=== PATIENT | female | born 1995 | race Caucasian/White ===

== ENCOUNTER 2020-12-28 04:31 | Outpatient (CLI) | payer BC ==
[~2020-12-28] VITALS: Ht 152.4 cm; Wt 88.0 kg
[2020-12-28 04:57] VITALS: BP 124/75
[2020-12-28] MEDS ORDERED: PREN-142 PO (05:04)
[2020-12-28 05:18] LABS: BILIRUBIN,URINE NEGATIVE (NEGATIVE); CLARITY,URINE CLEAR; COLOR,URINE YELLOW; GLUCOSE, URINE (UA) NEGATIVE (NEGATIVE); KETONES,URINE TRACE (NEGATIVE); LEUKOCYTE ESTERASE ,URINE 2+ (NEGATIVE); NITRITE,URINE NEGATIVE (NEGATIVE); PH,URINE 6.5 (5-9); PROTEIN,URINE TRACE (NEGATIVE)
[2020-12-28 05:35] LABS: BACTERIA,URINE LARGE /HPF; RBC,URINE 0-2 /HPF; SQUAMOUS EPITHELIAL CELL,UR 25-50 /HPF; WBC,URINE 50-100 /HPF
[2020-12-28] MEDS ORDERED: ONDANSETRON 4 MG/2 ML (SDV) Z0FRAN ONE (05:36)
[2020-12-28] MEDS ORDERED: D5 LR IV SOLUTION 1,000 ML IV ONE (05:37)
[2020-12-28] MEDS ORDERED: ONDANSETRON 4 MG/2 ML (SDV) Z0FRAN IVP ONE (05:45)
[2020-12-28] MEDS ORDERED: LOPERAMIDE 2 MG (IMODIUM) TABLET PO ONE (05:45)
[2020-12-28] MEDS ORDERED: D5 LR IV SOLUTION 1,000 ML IV SCH (05:45)
[2020-12-28] MEDS ORDERED: LOPERAMIDE 2 MG (IMODIUM) TABLET PO PRN (05:45)
[2020-12-28 06:33] LABS: BILIRUBIN,URINE NEGATIVE (NEGATIVE); CLARITY,URINE CLEAR; COLOR,URINE YELLOW; GLUCOSE, URINE (UA) NEGATIVE (NEGATIVE); KETONES,URINE TRACE (NEGATIVE); LEUKOCYTE ESTERASE ,URINE TRACE (NEGATIVE); NITRITE,URINE NEGATIVE (NEGATIVE); PH,URINE 6.5 (5-9); PROTEIN,URINE TRACE (NEGATIVE)
[2020-12-28 06:43] LABS: BASOPHILS % (AUTO) 0 % (0-10); EOSINOPHILS # (AUTO) 0.1 10^3/uL (0.0-0.3); EOSINOPHILS % (AUTO) 1 % (0-10); HEMATOCRIT 37 % (35-52); HEMOGLOBIN 12.4 g/dL (11.5-16.0); LYMPHOCYTES # (AUTO) 2.7 10^3/uL (1.0-4.0); LYMPHOCYTES % (AUTO) 22 % (12-44); MEAN CORPUSCULAR HEMOGLOBIN 28 pg (25-34); MEAN CORPUSCULAR HGB CONC 33 g/dL (32-36); MEAN CORPUSCULAR VOLUME 84 fL (80-99); MEAN PLATELET VOLUME 10.4 fL (9.0-12.2); MONOCYTES # (AUTO) 0.8 10^3/uL (0.0-1.0); MONOCYTES % (AUTO) 6 % (0-12); NEUTROPHILS # (AUTO) 8.9 10^3/uL (1.8-7.8); NEUTROPHILS % (AUTO) 71 % (42-75); PLATELET COUNT 236 10^3/uL (130-400); WHITE BLOOD COUNT 12.6 10^3/uL (4.3-11.0)
[2020-12-28 06:53] LABS: BACTERIA,URINE NEGATIVE /HPF; SQUAMOUS EPITHELIAL CELL,UR 0-2 /HPF
[2020-12-28 07:22] LABS: ALBUMIN 3.1 GM/DL (3.2-4.5); CHLORIDE 106 MMOL/L (98-107); POTASSIUM 3.7 MMOL/L (3.6-5.0); SODIUM 135 MMOL/L (135-145)
[2020-12-28 07:23] LABS: CALCIUM 8.7 MG/DL (8.5-10.1)
[2020-12-28 07:24] LABS: GLUCOSE 91 MG/DL (70-105)
[2020-12-28 07:25] LABS: TOTAL PROTEIN 6.3 GM/DL (6.4-8.2)
[2020-12-28 07:26] LABS: BILIRUBIN,TOTAL 0.5 MG/DL (0.1-1.0); CARBON DIOXIDE 17 MMOL/L (21-32)
[2020-12-28 07:28] LABS: ALKALINE PHOSPHATASE 150 U/L (40-136); CREATININE SERUM 0.71 MG/DL (0.60-1.30); GFR ESTIMATED > 60
[2020-12-28 07:29] LABS: BUN/CREATININE RATIO 14
[2020-12-28 07:31] LABS: ALANINE AMINOTRANSFERASE 52 U/L (0-55)
--- NOTE | 2020-12-31 07:29 | Physician Query-Final Dx ---
ALLEN QUINTERO 12/31/20 0728: Clinic Account Progress/Dx Physician Query: Please give diagnosis Please include # weeks gestation Date of Service Dec 28, 2020 at 04:31 ELVIN HARRIS MD 01/01/21 0838: Clinic Account Progress/Dx DIAGNOSIS: Diagnosis 36 weeks with false labor ALLEN QUINTERO Dec 31, 2020 07:28 ELVIN HARRIS MD Jan 01, 2021 08:38
== END 2020-12-28 08:22 | disposition home or self-care (01) ==
LOC: WSo 04:31 → LDRP 04:32 → WS 08:04 → LDRP 08:04 → WSo 08:22
PROVIDERS: ATTEND Obstetrics & Gynecology
DX: O26.893 Other specified pregnancy related conditions, third trimester (principal); R11.2 Nausea with vomiting, unspecified; Z3A.36 36 weeks gestation of pregnancy
CPT/HCPCS: 80053; 81000; 82570; 84156; 85025; 87088; 96361; 96374; G0463; 36415; 99214

== ENCOUNTER 2021-01-06 09:07 | Outpatient (CLI) | payer BC ==
[~2021-01-06] VITALS: Ht 160 cm; Wt 91.5 kg
[~2021-01-06 09:07] MED LIST: PREN-142 PO
[2021-01-06 10:58] VITALS: BP 126/67
--- NOTE | 2021-01-07 07:48 | Physician Query-Final Dx ---
ALLEN QUINTERO 01/07/21 0748: Clinic Account Progress/Dx Physician Query: Please give diagnosis Please include # weeks gestation Date of Service Jan 06, 2021 at 09:07 ELVIN HARRIS MD 01/07/21 2004: Clinic Account Progress/Dx DIAGNOSIS: Diagnosis 37 weeks with false labor ALLEN QUINTERO Jan 07, 2021 07:48 ELVIN HARRIS MD Jan 07, 2021 20:04
== END 2021-01-06 10:50 | disposition home or self-care (01) ==
LOC: WSo 09:07 → LDRP 09:08 → WSo 10:50
PROVIDERS: ATTEND Obstetrics & Gynecology
DX: O12.03 Gestational edema, third trimester (principal); Z3A.37 37 weeks gestation of pregnancy
CPT/HCPCS: 99213

== ENCOUNTER 2021-01-09 07:14 | Inpatient (IN) | payer BC ==
[~2021-01-09] VITALS: Ht 152.4 cm; Wt 91.3 kg
[2021-01-09] VITALS (44 sets, daily range): BP systolic 94–135; BP diastolic 50–85
[2021-01-09] MEDS ORDERED: AMPICILLIN FOR IV USE 2,000 MG in WATER (STERILE) FOR INJECTION 14.8 ML IV ONE (07:45)
[2021-01-09] MEDS ORDERED: AMPICILLIN FOR IV USE 1,000 MG in WATER (STERILE) FOR INJECTION 7.4 ML IV SCH (07:45)
[2021-01-09] MEDS ORDERED: OXYTOCIN PRE-MIX DRIP 500 ML IV SCH (07:45)
[2021-01-09] MEDS ORDERED: AMPICILLIN 2,000 MG/14.8 ML (IV USE) ONE (08:01)
[2021-01-09] MEDS ORDERED: D5 LR IV SOLUTION 1,000 ML IV ONE (08:01)
[2021-01-09] MEDS ORDERED: OXYTOCIN PRE-MIX DRIP 500 ML IV ONE (08:01)
[2021-01-09] MEDS ORDERED: WATER (STERILE) FOR INJECTION 20 ML ONE (08:01)
--- NOTE | 2021-01-09 08:07 | History & Physical ---
History and Physical Date Seen by Provider: Jan 09, 2021 Time Seen by Provider: 07:45 This patient is a 25-year-old 1 female who presents for induction of labor. She was seen in clinic yesterday and found to have an JENISE of barely over 5 the low end of estimated growth and consistent with SGA's versus overtly growth restricted. Otherwise uncomplicated. GBS culture however was positive after 35 weeks gestation. Clinic that she was not sure whether she might be leaking fluid. With the low JENISE to admit for labor induction Patient presents with no complaints of contractions rupture membranes or bleeding. Allergies are to iodine Medications are vitamins Medical social and surgical history is all per the antepartum record HEENT exam is normal Neck is supple no lymphadenopathy no thyromegaly Abdomen is gravid soft nontender nondistended Extremities show no clubbing or cyanosis. There is no Homans' sign. Pelvic exam in clinic showed a cervix not quite a centimeter dilated 60% effaced -2 station with vertex presentation Assessment and plan 37 5/7 weeks gestation with notable oligohydramnios. Patient is admitted now for labor induction. We anticipate a vaginal delivery 37-5/7 weeks gestation with oligohydramnios Allergies and Home Medications Allergies Coded Allergies: iodine (Verified Allergy, Unknown, 12/28/20) shellfish derived (Verified Allergy, Unknown, 12/28/20) Home Medications Vit No.124/Iron/FA 1 Each Tablet, 1 EACH PO DAILY, (Reported) Patient Home Medication List Home Medication List Reviewed: Yes ELVIN HARRIS MD Jan 09, 2021 08:07
[2021-01-09 08:09] LABS: BASOPHILS # (AUTO) 0.1 10^3/uL (0.0-0.1); BASOPHILS % (AUTO) 0 % (0-10); EOSINOPHILS # (AUTO) 0.1 10^3/uL (0.0-0.3); EOSINOPHILS % (AUTO) 1 % (0-10); HEMATOCRIT 37 % (35-52); HEMOGLOBIN 12.8 g/dL (11.5-16.0); LYMPHOCYTES # (AUTO) 3.1 10^3/uL (1.0-4.0); LYMPHOCYTES % (AUTO) 27 % (12-44); MEAN CORPUSCULAR HEMOGLOBIN 28 pg (25-34); MEAN CORPUSCULAR HGB CONC 34 g/dL (32-36); MEAN CORPUSCULAR VOLUME 82 fL (80-99); MEAN PLATELET VOLUME 10.6 fL (9.0-12.2); MONOCYTES % (AUTO) 8 % (0-12); NEUTROPHILS # (AUTO) 7.1 10^3/uL (1.8-7.8); NEUTROPHILS % (AUTO) 62 % (42-75); PLATELET COUNT 241 10^3/uL (130-400); WHITE BLOOD COUNT 11.4 10^3/uL (4.3-11.0)
[2021-01-09] MEDS: D5 LR IV SOLUTION 1,000 ML IV SCH ×3 (08:18→22:26)
[2021-01-09] MEDS ORDERED: ACETAMINOPHEN 500 MG TAB (TYLENOL) ONE (10:23)
[2021-01-09] MEDS ORDERED: ACETAMINOPHEN 500 MG TAB (TYLENOL) PO ONE (10:30)
[2021-01-09] MEDS: AMPICILLIN FOR IV USE 1,000 MG in WATER (STERILE) FOR INJECTION 7.4 ML IV SCH ×2 (12:02→16:08)
[2021-01-10] VITALS (49 sets, daily range): BP systolic 82–136; BP diastolic 57–84
[2021-01-10] MEDS ORDERED: AMPICILLIN 2,000 MG/14.8 ML (IV USE) ONE (04:56)
[2021-01-10] MEDS ORDERED: WATER (STERILE) FOR INJECTION 10 ML ONE (04:57)
[2021-01-10] MEDS: D5 LR IV SOLUTION 1,000 ML IV SCH ×2 (05:07→12:30)
[2021-01-10] MEDS ORDERED: AMPICILLIN FOR IV USE 2,000 MG in WATER (STERILE) FOR INJECTION 14.8 ML IV SCH (07:00)
[2021-01-10] MEDS: AMPICILLIN FOR IV USE 1,000 MG in WATER (STERILE) FOR INJECTION 7.4 ML IV SCH ×2 (09:05→13:12)
--- NOTE | 2021-01-10 09:07 | Progress Note ---
Standard Progress Note Progress Notes/Assess & Plan Date Seen by a Provider: Jan 10, 2021 Time Seen by a Provider: 09:05 Progress/Assessment & Plan This patient is without complaint. She does feel occasional contractions. She feels baby moving. She denies rupture membranes or bleeding. Vital Signs Date Time Temp Pulse Resp B/P (MAP) Pulse Ox O2 Delivery O2 Flow Rate FiO2 01/10/21 07:15 36.4 84 18 110/70 (83) 01/10/21 07:00 36.7 75 18 126/77 (93) 01/10/21 06:45 71 18 132/78 (96) 01/10/21 06:30 68 18 118/67 (84) 01/10/21 06:15 74 18 133/78 (96) 01/10/21 06:00 75 18 135/84 (101) 01/10/21 05:45 74 18 119/64 (82) 01/10/21 05:30 64 18 118/80 (93) 01/10/21 05:17 36.8 65 18 110/64 (79) 01/10/21 04:37 81 18 112/69 (83) 01/10/21 02:00 71 18 118/68 (85) 01/10/21 00:03 78 18 110/69 (83) 01/09/21 22:00 70 18 111/66 (81) 01/09/21 20:00 36.0 75 18 118/66 (83) 01/09/21 19:10 36.0 81 18 110/62 (78) 01/09/21 19:00 91 18 114/71 (85) 01/09/21 18:30 91 18 114/71 (85) 01/09/21 18:15 66 18 109/62 (78) 01/09/21 18:00 69 18 117/63 (81) 01/09/21 17:45 66 18 117/69 (85) 01/09/21 17:30 63 18 123/75 (91) 01/09/21 17:15 63 18 126/76 (93) 01/09/21 17:00 60 18 114/75 (88) 01/09/21 16:15 73 18 97/53 (68) 01/09/21 16:00 76 18 109/64 (79) 01/09/21 15:45 64 18 95/52 (66) 01/09/21 15:30 72 18 94/50 (65) 01/09/21 15:15 70 18 113/63 (80) 01/09/21 15:00 67 18 107/73 (84) 01/09/21 14:45 74 18 111/57 (75) 01/09/21 14:30 71 18 106/59 (75) 01/09/21 14:15 82 18 110/56 (74) 01/09/21 14:00 69 18 109/67 (81) 01/09/21 13:45 69 18 107/58 (74) 01/09/21 13:30 71 18 128/72 (90) 01/09/21 13:15 37.0 74 18 119/74 (89) 01/09/21 13:00 68 18 119/73 (88) 01/09/21 12:45 76 18 122/82 (95) 01/09/21 12:30 79 18 112/69 (83) 01/09/21 12:15 75 18 112/76 (88) 01/09/21 12:00 82 18 109/57 (74) 01/09/21 11:45 83 18 109/58 (75) 01/09/21 11:30 108 18 118/59 (78) 01/09/21 11:15 80 18 107/59 (75) 01/09/21 11:00 78 18 113/64 (80) 01/09/21 10:45 92 18 117/67 (84) 01/09/21 10:30 81 18 105/59 (74) 01/09/21 10:15 77 18 112/71 (85) 01/09/21 10:00 78 18 112/74 (87) 01/09/21 09:45 36.7 79 18 118/62 (80) 01/09/21 09:30 83 18 113/74 (87) 01/09/21 09:15 86 18 121/82 (95) I & O 01/10/21 07:00 Intake Total 1022.2 ml Balance 1022.2 ml Vital signs are stable. Patient is afebrile. Cervical exam shows a cervix thinned out about a third of the way but closed. Presenting part is at a relatively high station -3 -4 Assessment and plan This is day 2 of a serial induction for oligohydramnios at 37+ weeks gestation. Patient made essentially no progress at all with over 8 hours of Pitocin stimulation yesterday. Plan is to proceed with Pitocin induction today if she fails to progress then eventually would be warranted. Patient understands the plan and agrees with that plan ELVIN HARRIS MD Jan 10, 2021 09:07
[2021-01-10] MEDS ORDERED: IBUP-1780 PO (09:14)
[2021-01-10] MEDS ORDERED: OXYC1TAB12 PO (09:14)
[2021-01-10] MEDS ORDERED: DOCU-143 PO (09:14)
--- NOTE | 2021-01-10 09:15 | Discharge Inst-Surgical ---
Discharge Inst-Surgical Depart Medication/Instructions New, Converted or Re-Newed RX: RX on Chart Consults/Follow Up Patient Instructions: As directed Orders & Referrals Follow Up Appt: RTC On Thursday, January 18, 2021 at 9:30 AM for staple removal and for incision check. Call to make follow up appt. for patient in 4 weeks. Wound Care: Remove keri, apply benzoin and steri strips. Activity Per routine post instructions. Please call in RX to patient pharmacy. Diet as tolerated Patient may shower or tub bathe as desired. Continue home meds Activity Activity as Tolerated: No Diet Discharge Diet: No Restrictions ELVIN HARRIS MD Jan 10, 2021 09:15
[2021-01-10] MEDS ORDERED: metroNIDAZOLE 500MG/100ML IVPB 100 ML IV ONE (14:30)
[2021-01-10] MEDS ORDERED: CITRIC ACID/SOB CIT (BICITRA) 30 ML UDC ONE (14:33)
[2021-01-10] MEDS ORDERED: METOCLOPRAMIDE INJ 10 MG/2 ML (REGLAN) ONE (14:33)
[2021-01-10] MEDS ORDERED: FAMOTIDINE 20MG/2ML IV (PEPCID) ONE (14:33)
[2021-01-10] MEDS ORDERED: ONDANSETRON 4 MG/2 ML (SDV) Z0FRAN ONE (14:40)
[2021-01-10] MEDS ORDERED: fentaNYL INJ 100 MCG/2 ML AMP ONE (14:41)
[2021-01-10] MEDS ORDERED: OXYTOCIN PRE-MIX DRIP 500 ML IV ONE (14:41)
[2021-01-10] MEDS ORDERED: BUPIVACAINE 0.25% 30 ML (SENSORCAINE) VIAL ONE (14:41)
[2021-01-10] MEDS ORDERED: KETOROLAC 30 MG/ML VIAL ONE (14:42)
[2021-01-10] MEDS ORDERED: METOCLOPRAMIDE INJ 10 MG/2 ML (REGLAN) IV ONE (14:45)
[2021-01-10] MEDS ORDERED: CITRIC ACID/SOB CIT (BICITRA) 30 ML UDC PO ONE (14:45)
[2021-01-10] MEDS ORDERED: FAMOTIDINE 20MG/2ML IV (PEPCID) IV ONE (14:45)
[2021-01-10] MEDS ORDERED: LACTATED RINGERS 1,000 ML IV PRN (14:45)
[2021-01-10] MEDS ORDERED: ONDANSETRON 4 MG/2 ML (SDV) Z0FRAN IV PRN (16:15)
[2021-01-10] MEDS ORDERED: ONDANSETRON 4 MG/2 ML (SDV) Z0FRAN IVP PRN ×2 (16:15→16:45)
[2021-01-10] MEDS ORDERED: NALOXONE 0.4 MG/ML 1 ML (NARCAN) VIAL IV PRN ×2 (16:15)
[2021-01-10] MEDS ORDERED: fentaNYL INJ 100 MCG/2 ML AMP IVP ONE (16:15)
[2021-01-10] MEDS ORDERED: diphenhydrAMINE 50 MG/ML INJ (BENADRYL) IV PRN (16:15)
[2021-01-10] MEDS ORDERED: METOCLOPRAMIDE INJ 10 MG/2 ML (REGLAN) IV PRN (16:15)
[2021-01-10] MEDS ORDERED: TETANUS,DIPTH,PERTUSS P/F (BOOSTRIX) 0.5 ML VIAL IM ONE (16:30)
[2021-01-10] MEDS ORDERED: D5 LR IV SOLUTION 1,000 ML IV SCH (16:30)
[2021-01-10] MEDS ORDERED: OXYTOCIN PRE-MIX DRIP 500 ML IV SCH (16:30)
[2021-01-10] MEDS ORDERED: MEASLES,MUMPS,RUBELLA 1 EA INJ SC ONE (16:30)
[2021-01-10] MEDS ORDERED: fentaNYL INJ 100 MCG/2 ML AMP IVP PRN (16:45)
[2021-01-10] MEDS ORDERED: IBUPROFEN 800 MG (MOTRIN) TAB PO SCH (17:00)
--- NOTE | 2021-01-10 17:57 | OPERATIVE REPORT ---
DATE OF SERVICE: 01/10/2021 PREOPERATIVE DIAGNOSIS: Term with oligohydramnios, status post serial induction for two days with a very little progress made. POSTOPERATIVE DIAGNOSIS: Term with oligohydramnios, status post serial induction for two days with a very little progress made. OPERATIVE PROCEDURE: Primary low transverse delivery of a viable female infant with Apgars of 8 and 9 at 1 and 5 minutes respectively, weight of 6 pounds 5 ounces, time of 1533 and a cord blood pH of 7.34. OPERATIVE DESCRIPTION: With the patient in supine position under satisfactory spinal analgesia, she was prepped and draped in the usual fashion for abdominal surgery. Powers catheter was placed in the urinary bladder. A Pfannenstiel incision was made through skin with scalpel, the patient's abdomen was entered in the usual manner. Bladder retractor was placed in position. Clean scalpel was used to make a 4 cm hysterotomy incision transversely across the lower uterine segment that was extended by blunt dissection as well. Small amount of amniotic fluid was released on hysterotomy. A vigorous viable female infant was delivered via the uterine incision in the usual manner. The infant was bulb suctioned on delivery of the head and again on completion of delivery. Umbilical cord was doubly clamped and cut and the passed to the pediatric nurse in attendance for delivery. Cord bloods were obtained. The placenta delivered spontaneously Chicas. It was normal with a 3-vessel cord. The uterus was exteriorized and interior wiped clean with a wet laparotomy sponge. Uterine incision then closed with a running locked suture of 2-0 Vicryl. Hemostasis was satisfactory; however, the uterus was quite atonic. Modified B-Gomez suture was placed using 2-0 chromic sutures in the usual modified manner. This compressed the uterus nicely prophylaxis and further potential significant blood loss. The uterus was now returned to the abdominal cavity. All blood clot and debris removed with the abdominal cavity. Sponge and needle counts correct, hemostasis assured. The anterior parietal peritoneum was closed with running suture of 2-0 Vicryl. Rectus muscles were closed with that suture as well. The rectus fascia was closed with 2-0 Vicryl, subcutaneous tissue was closed with 2-0 Vicryl and the skin was stapled. Sponge and needle counts were correct at the end of procedure. Estimated blood loss was around 200 to 300 mL. The patient tolerated the procedure well and was transferred to the recovery room in stable condition. The infant had remained with the mom. Job ID: [id number] DocumentID: [id number] Dictated Date: 01/10/2021 15:58:05 Sales Marketing Date: 01/10/2021 17:56:44 Dictated By: ELVIN HARRIS MD
[2021-01-10] MEDS: oxyCODONE/APAP 10/325MG (PERCOCET 10) TABLET PO PRN (20:03)
[2021-01-10] MEDS: DOCUSATE SODIUM 100 MG (COLACE) CAP PO SCH (20:29)
[2021-01-10] MEDS ORDERED: DOCUSATE SODIUM 100 MG (COLACE) CAP PO SCH (21:00)
[2021-01-10] MEDS: IBUPROFEN 800 MG (MOTRIN) TAB PO SCH (21:34)
[2021-01-11 03:10] VITALS: BP 110/65
[2021-01-11] MEDS: IBUPROFEN 800 MG (MOTRIN) TAB PO SCH ×4 (03:28→22:01)
--- NOTE | 2021-01-11 07:20 | Anesthesia-Regional Post-Op ---
Regional Patient Condition Mental Status: Alert, Oriented x3 Circulation: Same as Pre-Op Headache: Absent Sensation: Full Recovery Motor Block: Absent Post Op Complications Complications None Follow Up Care/Instructions Patient Instructions None needed. Anesthesia/Patient Condition Patient is doing well, no complaints, stable vital signs, no apparent adverse anesthesia problems. No complications reported per nursing. SAUL JONES CRNA Jan 11, 2021 07:20
--- NOTE | 2021-01-11 08:15 | Progress Note ---
Standard Progress Note Progress Notes/Assess & Plan Date Seen by a Provider: Jan 11, 2021 Time Seen by a Provider: 08:14 Progress/Assessment & Plan This patient is without complaint. She does feel occasional contractions. She feels baby moving. She denies rupture membranes or bleeding. Vital Signs Date Time Temp Pulse Resp B/P (MAP) Pulse Ox O2 Delivery O2 Flow Rate FiO2 01/10/21 07:15 36.4 84 18 110/70 (83) 01/10/21 07:00 36.7 75 18 126/77 (93) 01/10/21 06:45 71 18 132/78 (96) 01/10/21 06:30 68 18 118/67 (84) 01/10/21 06:15 74 18 133/78 (96) 01/10/21 06:00 75 18 135/84 (101) 01/10/21 05:45 74 18 119/64 (82) 01/10/21 05:30 64 18 118/80 (93) 01/10/21 05:17 36.8 65 18 110/64 (79) 01/10/21 04:37 81 18 112/69 (83) 01/10/21 02:00 71 18 118/68 (85) 01/10/21 00:03 78 18 110/69 (83) 01/09/21 22:00 70 18 111/66 (81) 01/09/21 20:00 36.0 75 18 118/66 (83) 01/09/21 19:10 36.0 81 18 110/62 (78) 01/09/21 19:00 91 18 114/71 (85) 01/09/21 18:30 91 18 114/71 (85) 01/09/21 18:15 66 18 109/62 (78) 01/09/21 18:00 69 18 117/63 (81) 01/09/21 17:45 66 18 117/69 (85) 01/09/21 17:30 63 18 123/75 (91) 01/09/21 17:15 63 18 126/76 (93) 01/09/21 17:00 60 18 114/75 (88) 01/09/21 16:15 73 18 97/53 (68) 01/09/21 16:00 76 18 109/64 (79) 01/09/21 15:45 64 18 95/52 (66) 01/09/21 15:30 72 18 94/50 (65) 01/09/21 15:15 70 18 113/63 (80) 01/09/21 15:00 67 18 107/73 (84) 01/09/21 14:45 74 18 111/57 (75) 01/09/21 14:30 71 18 106/59 (75) 01/09/21 14:15 82 18 110/56 (74) 01/09/21 14:00 69 18 109/67 (81) 01/09/21 13:45 69 18 107/58 (74) 01/09/21 13:30 71 18 128/72 (90) 01/09/21 13:15 37.0 74 18 119/74 (89) 01/09/21 13:00 68 18 119/73 (88) 01/09/21 12:45 76 18 122/82 (95) 01/09/21 12:30 79 18 112/69 (83) 01/09/21 12:15 75 18 112/76 (88) 01/09/21 12:00 82 18 109/57 (74) 01/09/21 11:45 83 18 109/58 (75) 01/09/21 11:30 108 18 118/59 (78) 01/09/21 11:15 80 18 107/59 (75) 01/09/21 11:00 78 18 113/64 (80) 01/09/21 10:45 92 18 117/67 (84) 01/09/21 10:30 81 18 105/59 (74) 01/09/21 10:15 77 18 112/71 (85) 01/09/21 10:00 78 18 112/74 (87) 01/09/21 09:45 36.7 79 18 118/62 (80) 01/09/21 09:30 83 18 113/74 (87) 01/09/21 09:15 86 18 121/82 (95) I & O 01/10/21 07:00 Intake Total 1022.2 ml Balance 1022.2 ml Vital signs are stable. Patient is afebrile. Cervical exam shows a cervix thinned out about a third of the way but closed. Presenting part is at a relatively high station -3 -4 Assessment and plan This is day 2 of a serial induction for oligohydramnios at 37+ weeks gestation. Patient made essentially no progress at all with over 8 hours of Pitocin stimulation yesterday. Plan is to proceed with Pitocin induction today if she fails to progress then eventually would be warranted. Patient understands the plan and agrees with that plan This patient is without complaint. She is ambulating, voiding, tolerating oral intake well and has good pain control. Vital Signs 01/11/21 03:10 Temp 36.5 Pulse 77 Resp 16 B/P (MAP) 110/65 (80) Pulse Ox 94 O2 Delivery Room Air Vital signs are stable. Patient is afebrile. The abdomen is benign. The surgical incision is clean dry and intact. Extremities show no clubbing or cyanosis. There is no Homans' sign. Assessment and plan close primary delivery doing well. Plan is for routine convalescent care ELVIN HARRIS MD Jan 11, 2021 08:15
[2021-01-11 08:30] VITALS: BP 118/68
[2021-01-11] MEDS: DOCUSATE SODIUM 100 MG (COLACE) CAP PO SCH ×2 (08:31→19:43)
[2021-01-11] MEDS: oxyCODONE/APAP 10/325MG (PERCOCET 10) TABLET PO PRN (08:31)
[2021-01-11] MEDS ORDERED: SIMETHICONE 80 MG (MYLICON) CHEW ONE (10:21)
[2021-01-11] MEDS ORDERED: ONDANSETRON 4 MG (ZOFRAN) ORAL DISSOLVE TAB ONE (10:23)
[2021-01-11] MEDS ORDERED: ONDANSETRON 4 MG (ZOFRAN) ORAL DISSOLVE TAB PO PRN (10:30)
[2021-01-11] MEDS: SIMETHICONE 80 MG (MYLICON) CHEW PO PRN ×2 (10:34→16:26)
[2021-01-11 12:30] VITALS: BP 119/58
[2021-01-11 15:57] VITALS: BP 127/75
[2021-01-11 22:00] VITALS: BP 124/70
[2021-01-12 04:08] VITALS: BP 119/63
[2021-01-12] MEDS: SIMETHICONE 80 MG (MYLICON) CHEW PO PRN (04:10)
[2021-01-12] MEDS: IBUPROFEN 800 MG (MOTRIN) TAB PO SCH ×2 (04:11→10:49)
[2021-01-12 08:00] VITALS: BP 118/73
[2021-01-12] MEDS: DOCUSATE SODIUM 100 MG (COLACE) CAP PO SCH (08:13)
--- NOTE | 2021-01-12 08:21 | Progress Note ---
Standard Progress Note Progress Notes/Assess & Plan Date Seen by a Provider: Jan 12, 2021 Time Seen by a Provider: 08:21 Progress/Assessment & Plan This patient is without complaint. She does feel occasional contractions. She feels baby moving. She denies rupture membranes or bleeding. Vital Signs Date Time Temp Pulse Resp B/P (MAP) Pulse Ox O2 Delivery O2 Flow Rate FiO2 01/10/21 07:15 36.4 84 18 110/70 (83) 01/10/21 07:00 36.7 75 18 126/77 (93) 01/10/21 06:45 71 18 132/78 (96) 01/10/21 06:30 68 18 118/67 (84) 01/10/21 06:15 74 18 133/78 (96) 01/10/21 06:00 75 18 135/84 (101) 01/10/21 05:45 74 18 119/64 (82) 01/10/21 05:30 64 18 118/80 (93) 01/10/21 05:17 36.8 65 18 110/64 (79) 01/10/21 04:37 81 18 112/69 (83) 01/10/21 02:00 71 18 118/68 (85) 01/10/21 00:03 78 18 110/69 (83) 01/09/21 22:00 70 18 111/66 (81) 01/09/21 20:00 36.0 75 18 118/66 (83) 01/09/21 19:10 36.0 81 18 110/62 (78) 01/09/21 19:00 91 18 114/71 (85) 01/09/21 18:30 91 18 114/71 (85) 01/09/21 18:15 66 18 109/62 (78) 01/09/21 18:00 69 18 117/63 (81) 01/09/21 17:45 66 18 117/69 (85) 01/09/21 17:30 63 18 123/75 (91) 01/09/21 17:15 63 18 126/76 (93) 01/09/21 17:00 60 18 114/75 (88) 01/09/21 16:15 73 18 97/53 (68) 01/09/21 16:00 76 18 109/64 (79) 01/09/21 15:45 64 18 95/52 (66) 01/09/21 15:30 72 18 94/50 (65) 01/09/21 15:15 70 18 113/63 (80) 01/09/21 15:00 67 18 107/73 (84) 01/09/21 14:45 74 18 111/57 (75) 01/09/21 14:30 71 18 106/59 (75) 01/09/21 14:15 82 18 110/56 (74) 01/09/21 14:00 69 18 109/67 (81) 01/09/21 13:45 69 18 107/58 (74) 01/09/21 13:30 71 18 128/72 (90) 01/09/21 13:15 37.0 74 18 119/74 (89) 01/09/21 13:00 68 18 119/73 (88) 01/09/21 12:45 76 18 122/82 (95) 01/09/21 12:30 79 18 112/69 (83) 01/09/21 12:15 75 18 112/76 (88) 01/09/21 12:00 82 18 109/57 (74) 01/09/21 11:45 83 18 109/58 (75) 01/09/21 11:30 108 18 118/59 (78) 01/09/21 11:15 80 18 107/59 (75) 01/09/21 11:00 78 18 113/64 (80) 01/09/21 10:45 92 18 117/67 (84) 01/09/21 10:30 81 18 105/59 (74) 01/09/21 10:15 77 18 112/71 (85) 01/09/21 10:00 78 18 112/74 (87) 01/09/21 09:45 36.7 79 18 118/62 (80) 01/09/21 09:30 83 18 113/74 (87) 01/09/21 09:15 86 18 121/82 (95) I & O 01/10/21 07:00 Intake Total 1022.2 ml Balance 1022.2 ml Vital signs are stable. Patient is afebrile. Cervical exam shows a cervix thinned out about a third of the way but closed. Presenting part is at a relatively high station -3 -4 Assessment and plan This is day 2 of a serial induction for oligohydramnios at 37+ weeks gestation. Patient made essentially no progress at all with over 8 hours of Pitocin stimulation yesterday. Plan is to proceed with Pitocin induction today if she fails to progress then eventually would be warranted. Patient understands the plan and agrees with that plan This patient is without complaint. She is ambulating, voiding, tolerating oral intake well and has good pain control. Vital Signs 01/11/21 03:10 Temp 36.5 Pulse 77 Resp 16 B/P (MAP) 110/65 (80) Pulse Ox 94 O2 Delivery Room Air Vital signs are stable. Patient is afebrile. The abdomen is benign. The surgical incision is clean dry and intact. Extremities show no clubbing or cyanosis. There is no Homans' sign. Assessment and plan close primary delivery doing well. Plan is for routine convalescent care January 12, 2021 See discharge summary Final Diagnosis 37 weeks with oligohydramnios primary delivery ELVIN HARRIS MD Jan 12, 2021 08:21
--- NOTE | 2021-01-12 08:26 | Discharge Summary ---
Discharge Summary 37-week primary delivery This patient is a 25-year-old 1 female who was admitted with oligohydramnios at 37+ weeks gestation on January 09, 2021. She is subjected to Pitocin throughout the day 2 enter labor or make any significant progress. At the end of the day the Pitocin was halted in favor of serial induction. On January 10 Pitocin again was initiated after 8 hours she failed to make any significant progress dilated only to about 1 cm. Of note is that the presenting part was at the -3 to -4 station and never did descend. She never really had significant contractions consistent with some degree of uterine inertia. Decision was made in the evening of January 10 to proceed with delivery for failure to progress. Patient was taken to the operating room where under spinal analgesia was performed. The procedure was uncomplicated the patient recovered uneventfully. On January 11 which was postoperative day #1 the patient was ambulating, voiding, tolerating oral intake well and had good pain control. She was stable through the day. Now on January 12 which is postoperative day #2 patient again is ambulating well voiding well tolerating oral intake well has good pain control and is requesting discharge home. She is to be discharged Principal diagnosis this hospitalization is 37+ week primary delivery Secondary diagnoses include oligohydramnios, failure to progress in labor, failure to descend, high station at term. Operations and procedures include serial induction of labor with Pitocin. IV antibiotic. Spinal analgesia. Primary delivery Patient was given appropriate discharge instructions verbally and in writing and a copy of those were placed in the chart. Discharge medications are Percocet Motrin Colace patient is continue her home vitamins. ELVIN HARRIS MD Jan 12, 2021 08:26
== END 2021-01-12 12:15 | disposition home or self-care (01) | DRG 788 ==
LOC: LDRP 07:14
PROVIDERS: ADMIT Obstetrics & Gynecology; ATTEND Obstetrics & Gynecology
PROC: 3E033VJ Introduction of Other Hormone into Peripheral Vein, Percutaneous Approach (ICD-10-PCS; 2021-01-09)
PROC: 10D00Z1 Extraction of Products of Conception, Low, Open Approach (ICD-10-PCS; principal; 2021-01-10 15:07)
DX: O41.03X0 Oligohydramnios, third trimester, not applicable or unspecified (principal); O64.8XX0 Obstructed labor due to other malposition and malpresentation, not applicable or unspecified; Z3A.37 37 weeks gestation of pregnancy; Z37.0 Single live birth
CPT/HCPCS: 36415; 85025; 86850; 86900; 86901; 94664